=== PATIENT | male | born 1990 | race Caucasian/White ===

== ENCOUNTER 2016-11-11 05:30 | Inpatient (IN) | payer OTHER ==
--- NOTE | ~2016-11-11 | OR ---
Unit #: [id number] #: [id number] Patient: PANCHO ABDULLAHI [id number] [address] [place], [place] [address] [id number] MR#: [id number] NAME: PANCHO ABDULLAHI ROOM: 26235 Date of Procedure: 11/11/2016 Admission Date: 11/11/2016 Surgeon: Jahaira Lujan M.D. : 1990 Attending Physician: Jahaira Lujan M.D. OPERATIVE REPORT PREOPERATIVE DIAGNOSIS Left foot pes abducto planovalgus secondary to stage IIB posterior tibial tendon dysfunction. POSTOPERATIVE DIAGNOSIS Left foot pes abducto planovalgus secondary to stage IIB posterior tibial tendon dysfunction. PROCEDURES PERFORMED 1. Left calcaneal lateral column lengthening (41969). 2. Left medial displacement calcaneal osteotomy through separate incision (77697). 3. Left cotton procedure (dorsal opening wedge osteotomy of medial cuneiform) (56132). 4. Left gastrocnemius recession (64271). ASSISTANTS SINDY Beth and SINDY Burdick. ANESTHESIA Popliteal saphenous block and general. INDICATIONS FOR SURGERY The patient is a 26-year-old male with symptomatic left pes abducto planovalgus secondary to posterior tibial tendon dysfunction. He has failed to respond to conservative care. He is therefore to undergo operative correction. DESCRIPTION OF PROCEDURE The patient underwent popliteal saphenous block. He was then taken to the operating room and placed in a supine position and general anesthetic was induced. The left foot was identified as the correct operative location during the time-out procedure. The IV antibiotic protocol was followed. The left foot was then prepped and draped in the usual sterile fashion. The leg was exsanguinated and the thigh tourniquet inflated to 300 mmHg. A lateral longitudinal incision was made over the anterior superior distal calcaneus measuring 6 cm. Subcutaneous tissue was divided. The peroneal tendon sheath was opened. The peroneal tendons were retracted plantarly. The lateral calcaneal wall was exposed subperiosteally. The angle of [place] was identified and a [place] elevator was placed across the front of the posterior facet. The [place] elevator was then used as a guide to make Unit #: [id number] #: [id number] Patient: PANCHO ABDULLAHI an osteotomy of the lateral anterior calcaneus 2 cm proximal to the calcaneocuboid joint. The medial cortex was opened with the power osteotome and then the osteotomy was opened. A DePuy 9 mm wide metal wedge was then impacted into place. No additional fixation was utilized. An oblique lateral incision was then made over the lateral calcaneus at a 45 degree angle to the plantar aspect of the foot just posterior to the peroneal tendons. Dissection proceeded down to the calcaneus and this was exposed subperiosteally. Baby Hohmann retractors were placed. The microsagittal saw was then used to osteotomize the calcaneus from lateral to medial and the medial cortex was carefully cut with the power osteotome. The osteotomy was then spread with a smooth lamina magnesium mill operator. The calcaneal tuberosity was displaced medially 1 cm and fixated with two posterior to anterior 4.0 mm diameter cannulated screws. Intraoperative C-arm fluoroscopy documented satisfactory screw position. A dorsal longitudinal incision was then made over the medial cuneiform measuring 4 cm. Subcutaneous tissue was divided. The extensor hallucis longus tendon was retracted. A K-wire was then drilled through the middle of the medial cuneiform and pin position was confirmed with C-arm fluoroscopy. The guide pin was then used as a guide for a medial cuneiform osteotomy performed from dorsal to plantar with the microsagittal saw. The osteotomy was then spread and a 6 mm wide metal cotton wedge was impacted into place. This corrected the residual forefoot varus. A 6 cm incision was then made in the medial mid calf. Subcutaneous tissue was divided. The deep fascia was opened. The interval between the gastrocnemius and soleus fascia was then developed with the sural nerve protected by an [facility] retractor. Vaughn scissors were used to cut the gastrocnemius fascia from medial to lateral. This then improved ankle dorsiflexion to 10 degrees. All wounds were copiously irrigated. Tourniquet was released with a total tourniquet time of 1 hour 15 minutes. Subcutaneous tissue was closed with 3-0 Vicryl, skin was closed with 3-0 nylon horizontal mattress sutures. Xeroform gauze, dressing, sponges, Webril, and a posterior fiberglass splint were applied. The patient was then transported to the recovery room in stable condition. ESTIMATED BLOOD LOSS Minimal. COMPLICATIONS None. SPECIMENS None. TOURNIQUET TIME 1 hour 15 minutes. Dictated byAvril Elizalde/sophia TD: 11/11/2016 23:55 JOB #: [id number] Unit #: [id number] #: [id number] Patient: PANCHO ABDULLAHI OPERATIVE REPORT Page 1 of 1 X Nicole Lujan MD X PROCEDURE OPERATIVE NOTE
--- NOTE | ~2016-11-11 | HP ---
Unit #: [id number] #: [id number] Patient: PANCHO ABDULLAHI [id number] [address] [place], [place] [address] [id number] MR#: [id number] NAME: PANCHO ABDULLAIH ROOM: Age: Sex: M Admission Date: 11/11/2016 : 1990 Attending Physician: Jahaira Lujan M.D. Primary Care Physician: Generic Doctor Not In System HISTORY AND PHYSICAL CHIEF COMPLAINT Left foot pain and deformity. HISTORY OF PRESENT ILLNESS The patient is a 25-year-old male with chronic left pes abducto-planovalgus and significant lateral hindfoot pain. He has significant bilateral heel valgus and ankle equinus to -25 degrees. He is unable to do a left single heel rise. His exam is consistent with stage 2B left posterior tibial tendon dysfunction. He is therefore admitted for foot reconstruction. He has failed to respond to conservative care. PAST MEDICAL HISTORY Remarkable for tobacco abuse. HOME MEDICATIONS 1. Diclofenac. 2. Trazodone. ALLERGIES None. PAST SURGICAL HISTORY None. SOCIAL HISTORY He is a current smoker. He is a social drinker of alcohol. FAMILY HISTORY Unremarkable. REVIEW OF SYSTEMS Unremarkable. PHYSICAL EXAMINATION GENERAL: Height 5 foot 10, weight 220 pounds, BMI 31.5. In general, this is a well developed, well nourished, obese male in no acute distress. PHARYNX: Clear. NECK: Supple without masses. HEART: Regular sinus rhythm without murmurs or gallops. LUNGS: Clear. ABDOMEN: Soft and nontender without masses or organomegaly. Evaluation of the symptomatic left foot demonstrates flattening of the longitudinal arch. He has 10 degrees of hindfoot valgus. Forefoot Unit #: [id number] #: [id number] Patient: PANCHO ABDULLAHI abduction is present. He exhibits a positive too many toes sign. He has pain over his posterior tibial tendon but the tendon is palpable. Left ankle dorsiflexion is -25 degrees, plantar flexion is normal. Subtalar motion is normal. First MTP joint motion is normal. He is unable to perform a single heel rise on the left. Pulses are normal, sensation is normal. Standing x-rays of the left ankle are normal. Standing x-rays of the left foot show 50% talonavicular coverage with a calcaneal pitch of 14 degrees and a negative lateral talar first metatarsal angle of about -30 degrees. Medial cuneiform height is -1. He has obvious dorsolateral peritalar subluxation. ADMITTING DIAGNOSIS Left foot pain secondary to posterior tibial tendon dysfunction, stage 2B. PLAN The patient has failed to respond to conservative care. He is therefore admitted for operative reconstruction. This will entail lateral column lengthening, medial displacement calcaneal osteotomy, Cotton procedure, gastrocnemius recession, possible FDL transfer. The procedure was described along with risks of bleeding, infection, nerve damage, need for further surgery in the future, prolonged recovery time, deep venous thrombosis, pulmonary embolism, anesthetic complications. He understands the above risks and agrees to proceed. Dictated by Avril Saunders/priscilla TD: 11/11/2016 06:24 JOB #: [id number] HISTORY AND PHYSICAL Page 1 of 1 X Nicole Lujan MD X HISTORY AND PHYSICAL
[2016-11-11] MEDS ORDERED: TRAZODONE PO (14:24)
[2016-11-11] MEDS ORDERED: VOLTAREN75 MG PO (14:25)
== END 2016-11-11 11:45 | disposition home or self-care (01) | DRG 494 ==
LOC: CSUR 05:30 → CPACUOF 09:07
PROVIDERS: Orthopaedic Surgery
PROC: 0L8P0ZZ Division of Left Lower Leg Tendon, Open Approach (ICD-10-PCS; 2016-11-11)
PROC: 0Q8M0ZZ Division of Left Tarsal, Open Approach (ICD-10-PCS; 2016-11-11)
PROC: 0L8T0ZZ Division of Left Ankle Tendon, Open Approach (ICD-10-PCS; principal; 2016-11-11 07:30)
PROC: 0QBH0ZZ Excision of Left Tibia, Open Approach (ICD-10-PCS; 2016-11-11 07:30)
DX: M21.42 Flat foot [pes planus] (acquired), left foot (principal); F17.210 Nicotine dependence, cigarettes, uncomplicated
CPT/HCPCS: C1713; C1776; J0330; J0690; J2250; J2405; J2795; J3010